=== PATIENT | female | born 1975 | race Caucasian/White ===

== ENCOUNTER 2025-01-03 10:01 | Emergency (ER) | payer MEDICAID | END 2025-01-03 11:08 | disposition home or self-care (01) | LOC: JP.ED 10:01 | DX: L25.9 Unspecified contact dermatitis, unspecified cause (principal); F17.200 Nicotine dependence, unspecified, uncomplicated | CPT/HCPCS: 99282; 99283 ==

== ENCOUNTER 2025-01-09 12:34 | Emergency (ER) | payer MEDICAID ==
[2025-01-09 13:59] LABS: BASOPHILS ABSOLUTE AUTO 0.05 K/uL (0.00-0.10); BASOPHILS PERCENT AUTO 0.4 % (0.1-1.3); EOSINOPHILS PERCENT AUTO 3.5 % (0.0-5.4); HEMATOCRIT 44.9 % (34.3-46.0); HEMOGLOBIN 15.3 g/dL (11.2-15.5); IMMATURE GRAN ABSOLUTE AUTO 0.05 K/uL (0.00-0.23); IMMATURE GRAN PERCENT AUTO 0.4 % (0.0-0.7); LYMPHOCYTES ABSOLUTE AUTO 4.19 K/uL (0.8-3.3); LYMPHOCYTES PERCENT AUTO 36.5 % (11.4-47.7); MEAN CORPUSCULAR HGB CONC 34.1 g/dL (31.6-35.5); MEAN CORPUSCULAR VOLUME 96.8 fL (81.4-99.0); MONOCYTES ABSOLUTE AUTO 0.72 K/uL (0.20-0.90); MONOCYTES PERCENT AUTO 6.3 % (3.3-12.6); NEUTROPHILS ABSOLUTE AUTO 6.07 K/uL (1.0-7.6); NEUTROPHILS PERCENT AUTO 52.9 % (40.0-78.1); PLATELET COUNT,PLT 388 K/uL (130-375); RED BLOOD CELL COUNT 4.64 M/uL (3.77-5.24); WHITE BLOOD CELL COUNT,WBC 11.5 K/uL (3.2-11.0)
[2025-01-09 14:22] LABS: ALANINE AMINOTRANSFERASE,ALT 23 U/L (12-78); ALBUMIN 3.5 g/dL (3.4-5.0); ALKALINE PHOSPHATASE 61 U/L (46-116); ASPARTATE AMNIOTRANSFERASE,AST 14 U/L (15-37); BILIRUBIN TOTAL 0.2 mg/dL (0.2-1.0); BLOOD UREA NITROGEN,BUN 12 mg/dL (7-18); CALCIUM 8.7 mg/dL (8.5-10.1); CARBON DIOXIDE,CO2 32 mmol/L (21-32); CHLORIDE,CL 103 mmol/L (100-108); CREATININE 0.7 mg/dL (0.6-1.0); ESTIMATED GFR 106 mL/min (>60); GLUCOSE RANDOM 94 mg/dL (74-106); POTASSIUM,K 3.8 mmol/L (3.6-5.2); PROTEIN TOTAL,TP 6.9 g/dL (6.4-8.2); SODIUM,NA 139 mmol/L (140-148)
[2025-01-09 14:23] LABS: ANION GAP 7.8 mmol/L (5.0-14.0)
== END 2025-01-09 15:05 | disposition home or self-care (01) ==
LOC: JP.ED 12:34
DX: L23.3 Allergic contact dermatitis due to drugs in contact with skin (principal)
CPT/HCPCS: 36415; 80053; 85025; 99283; 99284